=== PATIENT | male | born 1985 | race Caucasian/White ===

== ENCOUNTER 2022-01-08 02:58 | Outpatient (CLI) | payer SELFPAY ==
[2022-01-08 12:29] LABS: HCT 47.8 % (40.0-50.0); HGB 15.8 g/dL (13.5-17.5); MCH 30.2 pg (27.0-33.0); MCHC 33.1 % (32.0-36.0); MCV 91 fL (80-95); MPV 10.9 fL (8.0-11.0); Platelet Count 208 10^3/uL (130-400); RBC 5.23 10^6/uL (4.36-5.78); RDW 12.6 % (11.8-14.1); RDW-SD 42.7 fL
[2022-01-08 13:23] LABS: ALT 29 U/L (16-63); AST 16 U/L (15-37); Albumin 4.4 g/dL (3.4-5.0); Alkaline Phosphatase 92 U/L (46-116); Anion Gap 7.9 mmol/L (3-11); BUN 21 mg/dL (7-18); Bilirubin, Total 0.6 mg/dL (0.2-1.0); CO2 31.1 mmol/L (21.0-32.0); Calcium 8.9 mg/dL (8.5-10.1); Calculated LDL 157 mg/dL (<100); Chloride 103 mmol/L (98-107); Cholesterol 215 mg/dL (<200); Glucose 99 mg/dL (74-106); HDL Cholesterol 47 mg/dL (40-60); Potassium 4.3 mmol/L (3.5-5.1); Sodium 142 mmol/L (136-145); Total Protein 7.4 g/dL (6.4-8.2); Triglyceride 59 mg/dL (<150)
== END 2022-01-08 02:59 | disposition home or self-care (01) ==
LOC: LOS 02:59
PROVIDERS: PCP Family Medicine; Visit Provider Family Medicine
DX: I10 Essential (primary) hypertension (principal); K62.5 Hemorrhage of anus and rectum; Z13.6 Encounter for screening for cardiovascular disorders
CPT/HCPCS: 36415; 80053; 80061; 85027

== ENCOUNTER 2025-03-15 06:05 | Day surgery (SDC) | payer SELFPAY ==
[2025-03-15] VITALS (18 sets, daily range): BP systolic 102–131; BP diastolic 64–91; PULSE 62–74; RESP 15–28; TEMP 36–36.5; O2SAT 94–119; BMI 22.6
[2025-03-15] MEDS: Lactated Ringers 1,000 ML 80 ML IV (06:31)
--- NOTE | 2025-03-15 06:36 | W.ANESPRE ---
General Info Date of Service Date Performed: 03/15/25 Height: 5 ft 11 in Weight: 73.8 kg Body Mass Index (BMI): 22.6 Surgical Procedure: Operation Date: 03/15/25 07:40 Proposed Procedure Side Surgeon p Excision of Gluteal Skin Cyst Right Sue Snell MD Meds Allergies and Home Medications Allergies Allergy/AdvReac Type Severity Reaction Status Date / Time Penicillins Allergy unkown Verified 03/15/25 06:20 Home Medication ?Medication ?Instructions ?Recorded Unknown [No Known Home Meds] 03/11/25 Current Visit Medications: Current Medications Generic Name Dose Route Start Last Admin Trade Name Freq PRN Reason Stop Dose Admin Ringer's Solution 1,000 mls @ 80 mls/hr 03/15/25 06:00 03/15/25 06:31 IV 03/15/25 23:59 80 mls/hr INFUSION TARAN Administration Cefazolin Sodium/Dextrose 2 gm in 50 mls @ 100 mls/hr 03/15/25 06:00 Ancef Duplex IVPB 03/15/25 23:59 PREOP TARAN IV Miscellaneous Supplies 1 each 03/15/25 06:00 Iv Access IV 03/15/25 23:59 DIRECTED TARAN Sodium Chloride 0 ml 03/15/25 06:00 Normal Saline Flush 10 Ml Syr IV 03/15/25 23:59 PRN PRN Sodium Chloride 0 ml 03/15/25 06:00 Normal Saline 10 Ml Vial IJ 03/15/25 23:59 DIRECTED PRN Sterile Water 0 ml 03/15/25 06:00 Water,Injection,Sterile 10 Ml Vial IJ 03/15/25 23:59 DIRECTED PRN PFSH Active Problems Active Problems: Problem Status Onset Code Non-healing wound of right lower extremity Acute S81.801A Abscess Acute L02.91 Skin tags, anus or rectum Acute K64.4 Internal hemorrhoids Acute K64.8 Rectal hemorrhage Resolved K62.5 Surgical History Surgical History Hernia repair 1984 and 1986 B/L Tobacco Smoking/Tobacco Use Status: Current every day Tobacco Type: cigarettes Years smoked: 17 Counseling given: provider counseling and counseling >3 minutes Alcohol Alcohol Intake: current Substance Use Substance use: Daily Substance use type: marijuana Vital Signs and Lab Results Vital Signs Most Recent Vital Signs in EMR: Most Recent Vital Signs Temp Pulse Resp BP Pulse Ox 36 C L 70 16 131/91 H 98 03/15/25 06:07 03/15/25 06:07 03/15/25 06:07 03/15/25 06:07 03/15/25 06:07 Anesthesia Assessment and Plan Anesthesia History Personal History: No History of Anesthesia Complications Family History: No Family History of Anesthesia Complications Exercise Tolerance Exercise Tolerance: Metabolic Equivalents>4 Pertinent Negatives Pertinent Negatives: No Symptoms of GERD, No Major Cardiovascular Symptoms or Complaints and No Major Pulmonary Symptoms or Complaints Cardiac & Pulmonary Exam Cardiac Exam: Normal S1/S2 Heart Sounds Pulmonary Exam: Clear Bilateral Breath Sounds Implantable Cardiac Device Does patient have a Pacemaker or an ICD?: No Airway Exam Known Difficult Airway: No Mallampati Class: 1 Mouth Opening: Normal (> 3cm) Thyromental Distance: Greater than 3 cm Neck Range of Motion: Full ROM Neck Circumference: Normal Teeth Condition: Normal Dentition ASA Classification ASA Score: ASA 2 Emergency Case?: No NPO Status NPO Status: NPO Clears >2 hours, Solids >8 hours Anesthesia Plan Resuscitation Status: Full Code Anesthesia Technique: General Anesthesia Airway Planned: Endotracheal Tube Monitors Used: Standard Monitors
--- NOTE | 2025-03-15 07:27 | HPE_ITS ---
Date of service: 03/15/25 Time of Service: 07:28 Assessment and Plan Assessment and plan (1) Non-healing wound of right lower extremity: Status: Acute Assessment and plan: Nonhealing wound in the skin of the right gluteus medially at the cleft. The differential for this includes epidermal cyst with residual sac, fistula from pilonidal disease in the midline, or a foreign body. Foreign body is not likely. On examination there is no evidence of pilonidal disease in the midline. The periwound induration and dermal thickening suggest that he could have a fistula tract to the midline or perhaps residual cyst material or other foreign body under the skin. A complete excision of the wound tract and closure is what I recommend we try to accomplish wound closure. We discussed a more extensive excision of all abnormal tissue in this area followed by pathological assessment of the excised tissues for a diagnosis. I find it unusual that the diagnosis is not evident on examination. I think the most likely diagnosis is a ruptured epidermal cyst with a number residual sac underneath the skin medial toward the gluteus medial toward the cleft, or occult pilonidal disease with fistula to the right glute. Surgical excision scar will be hockey-stick shaped and include excision within the midline and the right gluteus. We discussed closure of the deep layers with stitches in the superficial layer with yo. I recommend he plan 1 to 2 weeks off of work as he is expected to have discomfort from this excision. He asked good questions and verbalized understanding. We discussed the procedural risks, benefits, alternatives, and expectations. He asked good questions and verbalized understanding. I reviewed the expected postoperative course recovery and follow-up with him. here today for surgery as planned in December. proceed to OR. History of Present Illness Narrative: HPI This is a 39-year-old patient here today for planned surgery. HPI from prior preop visitis as followss: ...who is seeing me today for an evaluation of para gluteal cleft abscess site. In September he had incision and drainage of an abscess in the right side of the gluteal cleft. He has had a wound in this area since then. He had been experi encing symptoms of swelling tenderness and intermittent fluctuance over a period of 4 to 5 months at the time of the abscess drainage. The area is slowly healed until there was just a superficial residual wound. When that wound site was almost healed, the fluctuance recurred and the wound drained again. When the wound builds fluid up underneath it, it becomes very tender swollen and erythematous. He is not sure what is triggering these events. He denies any pain in the midline of the cleft. He notes there is some tenderness around the wound itself that tracks medially toward the cleft. At the wound has spontaneously drained on 2 occasions. Presently he has to wear a bandage over it to keep his skin and clothing dry. There is only a small amount of drainage from the wound site now that is not odorous and is not particularly bloody. He has been evaluated for causes for delayed wound healing and no clear cause has been found. I was asked to see him for a possible bedside ultrasound to evaluate for fluid in the gluteal cleft. He denies any prior problems with pilonidal disease. He has not had epidermal cyst problems in the skin. Normally when he cuts himself he heals well. He is not currently on any antibiotics as the wound in the glue is not considered infected. PFSH All Active Problems Non-healing wound of right lower extremity (Acute) Abscess (Acute) Skin tags, anus or rectum (Acute) Internal hemorrhoids (Acute) Surgical History Hernia repair 1984 and 1986 B/L Family History Mother Personal history of malignant neoplasm BREAST Hyperlipidemia Breast cancer Asthma Brother SVT (supraventricular tachycardia) ABLATION Maternal Grandfather Personal history of malignant neoplasm MOUTH Paternal Grandfather Hyperlipidemia Cancer Maternal Grandmother Essential hypertension Dementia Paternal Grandmother Diabetes Stroke Daughter Depression Social History Smoking/Tobacco Use Status: Current every day Tobacco Type: cigarettes Years smoked: 17 Tobacco: How many years used: 17 Counseling given: provider counseling and counseling >3 minutes Smoking risk assessment performed?: Yes Alcohol Intake: current Alcohol Intake frequency: 0-2 drinks per day Alcohol type: beer, wine and hard liquor Drug use: Daily Substance use type: marijuana Adopted: No Caregiver/Support person: No Household members: children Housing: house Number of Children: 1 Communication Needs: None Education Level: high school Do you need help understanding health information?: Never current occupation: [employer] Sexually active: Yes Do you think of yourself as: straight/heterosexual Current gender identity: male What is your relationship status?: How often do you talk on the phone with friends or family?: once per week How often do you get together with friends or relatives?: once per week How often do you attend restoration or nondenominational services?: decline to answer Do you belong to any clubs or organized social groups?: no Panel score (0-1 are the most socially isolated patients): 0 Nina/Yazidism: Nondenominational Special nina needs: No Seatbelt use: always Helmet use: Yes Helmet use: sometimes Drive intox or ride w/intox limousine driver: No Firearms in home: Yes Firearms unloaded and locked: Yes Do you feel safe at home: Yes Do you feel safe in your relationship?: Yes Would you like helpful sources: No Additional Social history: Enjoys hunting Meds Allergies and Home Medications Allergies Allergy/AdvReac Type Severity Reaction Status Date / Time Penicillins Allergy unkown Verified 03/15/25 06:20 Home Medications ?Medication ?Instructions ?Recorded ?Confirmed ?Type Unknown [No Known Home Meds] 03/11/25 0 03/11/25 History Exam Narrative Exam Narrative: awake, NAD eomi, MMM midline trachea, neck is symmetric PULM: normal resp effort, equal chest rise with respiration, no wheezing audible CARDIAC: normal PMI, no jvd, regular rate, normal perfusion abdomen is nondistended. extremities are without deformity, normal movement of all four extremities speech is clear and coherent mood and affect are congruent, no focal neurological deficits skin without rash Results Last Vital Signs Temp 96.8 F L 03/15/25 06:07 Pulse 70 03/15/25 06:07 Resp 16 03/15/25 06:07 BP 131/91 H 03/15/25 06:07 Pulse Ox 98 03/15/25 06:07 Time Spent Time spent with Patient: <40 minutes Time was spent: preparing to see the patient(eg.review tests), counseling the patient and care coordination
--- NOTE | 2025-03-15 07:34 | W.PM.DSUDISC ---
Date of service: 03/15/25 Discharge Plan Disposition Patient Disposition: Home Condition: Stable Discharge Details Attending Provider: Sue Snell Primary Care Provider: Rachell Garnica Recommendations for Follow Up Recommended tests to be ordered by follow up provider: none Home Meds and New Rx's Prescriptions: New hydrocodone-acetaminophen 5-325 mg tablet 1 tab PO Q6H PRN (Reason: pain) Qty: 10 0RF Discharge Instructions Additional Instructions: Area is remarkably healed today compared to ernestina exam. As a result, your excision was smaller and the bandage plan has changes. Stitches under the skin are covered by steristrips instead of yo. Ok to wash right over the strips in 48 hours. Ok to shower but do not submerge under water in a tub or bath. Wash gently with soapy hands, rinse, pat dry. Air dry under clothing and place a clean dry gauze over the area to wick moisture as needed. Secure with tape until wound is dry and no longer staining the dressings. After it is dry and no longer staining you may tape just one side of it, or tuck it in to absorb moisture. Increased pain in 1-3 days is expected as the numbing medicine wears off. Spot bleeding is normal and expected, but please report any significant drainage, odor, or any wound concerns to the office. Avoid sitting on the wound and avoid any activity that feels like its pulling the skin open. Pad your seat in the car and lay on your side while you watch tv. Even if it doesnt hurt, avoid stressing the site. Follow up in office 03/24/25 at 9:30am. Activity:: as noted in written instructions Remove Dressings/Wound Care:: 48 hours Shower/Bathe:: 48 hours Diet:: As Tolerated Discharge Orders Discharge Orders: Discharge Order (Routine); Ordered 03/15/25 Ordered By: Sue Snell DS: Diagnosis Discharge Diagnosis (1) Non-healing wound of right lower extremity: Status: Acute Asessment and Plan: excision of right gluteal skin cyst/wound/lesion at the cleft.
[2025-03-15] MEDS: ceFAZolin 2 GM/50 ML BAG IVPB (07:40)
--- NOTE | 2025-03-15 08:18 | SKI_PTH ---
PATIENT: Charli Damon LOC: [facility] U#:[id number] AGE/SX: 39/M ROOM: RE03/15/[address]: Sue Snell MD : 1985 BED: DIS: 03/15/2025 SPEC #: [id number] RECD: 03/15/25 12:45 STATUS: HARJEET RELeonard #: [id number] ZAC: 03/15/25 08:[address]: Sue Snell DEPT: Surgical Specimen RECD BY: Jerri Lane ENTERED: 03/15/25 12:46 SP TYPE: BENY MAYA DR: Rachell Garnica Tissues: 1 - SKIN BIOPSY(SHAVE/PUNCH) Procedures: GROSS AND MICRO LEVEL 3 Comments: [id number]
[2025-03-15] MEDS: Bupivacaine 0.25% Pres-Free W/EPI 30 ML VIAL (08:19)
[2025-03-15] MEDS: Bupivacaine LIPOSOME/PF 133 MG/10 ML VIAL IJ (08:33)
--- NOTE | 2025-03-15 09:05 | ROE_ITS ---
Operative Note Operative Note PRE-OP DIAGNOSIS: right gluteal wound, nonhealing POST-OP DIAGNOSIS: same (nonhealing skin lesion) PROCEDURE: Excision of right gluteal nonhealing skin lesion SURGEON: Sue Snell MANGLE PRESS CATCHER: Rosa Masters ANESTHESIA TYPE: Local By Surgeon and General LMA/ETT Refer to Anesthesia Record ESTIMATED BLOOD LOSS: 5 PATHOLOGY: other (1. right gluteal skin lesion) COMPLICATIONS: None Indications: Suspected skin cyst or foreign body of right gluteal skin as the cause for nonhealing wound Procedure Description: 39yo M with a nonhealing wound in the right gluteal skin. The skin lesion is just lateral to the gluteal cleft but there is no evidence of pilonidal cyst. He has had persistent reopening of a skin lesion in this area and complete excision is recommended for evaluation of the lesion and underlying subcutaneous tissue, and to allow for complete healing of the area by primary intention. We discussed excision procedure in office, including the risks, benefits, alternatives and expectations. Informed consent was obtained. We elected to perform the surgery in March when humidity and moisture would be more accommodating to healing in the cleft. By the time of his surgery the intergluteal skin had normalized but the residual skin lesion persisted, with a hypergranulated core. We proceeded with excision. In the operating room he was positioned supine on the cart. General anesthesia was induced and he was turned to prone position on the operating table. SCDs were placed and all pressure points were padded appropriately. The gluteal cleft and wound site were clipped, prepped and draped in the usual sterile fashion. Examination revealed a 10 x 7mm obliquely oriented skin lesion with a hypergranulated umbilicated center. The intergluteal skin had previously been dense and indurated but was normal now. No evidence of pilonidal cyst was seen in the cleft. No other skin lesions. An obliquely oriented ellipse was planned for complete excision of the lesion. A 3cm ellipse was traced to accomodate complete removal with linear closure. Local anesthetic was infiltrated into the skin and subcutaneous tissues. An incision was made with a scalpel around the lesion. Cautery was used to divide the subcutaneous fat down to normal fat. Medially there was extensive fibrosis and this was excised as well. The excision undermined medially by 7mm. The wound site was examined and all abnormal tissue was cleared. There was no purulence, contamination, or other reason not to place monocryl sutures over yo. Hemostasis was assured with cautery. 2-0 Vicryl suture was placed in simple interrupted fashion to reapproximate the subcutaneous tissues. Exparel was injected into the wound site for longer lasting anesthesia. The skin was then closed with subcuticular 4-0 Monocryl suture in simple interrupted fashion. The skin was washed and dried and steristrips applied. All sponge and instrument counts were correct at the end of the case. The patie nt tolerated the procedure well. He extubated in the operating room and transferred to the recovery room in stable condition. No complications. Date of Procedure: 03/15/25
--- NOTE | 2025-03-15 10:18 | W.ANESPOSTOP ---
Postoperative Evaluation Date, Time and Location Date Performed: 03/15/25 Time Performed: 10:18 Patient Location: Day Surgery Unit Vital Signs Most Recent Imported Vital Signs: Most Recent Vital Signs Temp Pulse Resp BP Pulse Ox 36.3 C L 62 16 121/90 98 03/15/25 10:09 03/15/25 10:09 03/15/25 10:09 03/15/25 10:09 03/15/25 10:09 Pain Score Most Recent Pain Score: Most Recent Pain Score Pain Level 0 03/15/25 10:09 Assessment Mental Status: Awake (Alert & Oriented to Patient Baseline) Airway and Respiratory Function: Patent airway with normal (patient baseline) respiratory exam Cardiovascular Function: Hemodynamically Stable Hydration Status: Adequately Hydrated Nausea & Vomiting: No Nausea or Vomiting Pain: Pt. Denies Any Pain Peripheral Nerve Block: Patient did not receive a nerve block
== END 2025-03-15 10:20 | disposition home or self-care (01) ==
PROVIDERS: PCP Family Medicine; Visit Provider Surgery
PROC: (CPT 11403; principal; 2025-03-15 07:30)
DX: D23.5 Other benign neoplasm of skin of trunk (principal); L72.0 Epidermal cyst
CPT/HCPCS: 11403; 88304; 88305; J0131; J0666; J0690; J1100; J1885; J2250; J2405; J2704